=== PATIENT | male | born 1960 | race Caucasian/White ===

== ENCOUNTER 2017-12-26 16:59 | Emergency (ER) | payer MEDICAID ==
[~2017-12-26] VITALS: Ht 188 cm; Wt 107.5 kg
[2017-12-26] MEDS ORDERED: OLAN5TAB5 PO (18:00)
[2017-12-26] MEDS ORDERED: BENZ2TAB7 PO (18:00)
[2017-12-26] MEDS ORDERED: DIVA-76 PO (18:00)
[2017-12-26] MEDS ORDERED: TOPI50TA24 PO (18:00)
[2017-12-26 18:04] LABS: CLARITY,URINE CLEAR (Clear); COLOR,URINE YELLOW (Yellow); GLUCOSE, URINE NEGATIVE (Neg); KETONES,URINE NEGATIVE (Neg); LEUKOCYTE ESTERASE ,URINE NEGATIVE (Neg); NITRITES, URINE NEGATIVE (Neg); OCCULT BLOOD,URINE NEGATIVE (Neg); PH,URINE 5.5 (4.8-8.0); PROTEIN,URINE NEGATIVE (Neg); UROBILINOGEN,URINE 0.2 E.U/dL (0.2-1.0)
[2017-12-26 18:06] LABS: UA COLLECTION TYPE CLN CATCH MIDSTREAM
[2017-12-26 18:15] LABS: URINE AMPHETAMINE SCREEN NEGATIVE (Neg); URINE BARBITUATE SCREEN NEGATIVE (Neg); URINE BENZODIAZEPINES SCREEN NEGATIVE (Neg); URINE CANNABINOID SCREEN NEGATIVE (Neg); URINE COCAINE SCREEN NEGATIVE (Neg); URINE METHADONE SCREEN NEGATIVE (Neg); URINE OPIATE SCREEN NEGATIVE (Neg); URINE PHENCYCLIDINE SCREEN NEGATIVE (Neg)
[2017-12-26 18:40] LABS: BASOPHILS # (AUTO) 0.1 X10'3 (0-0.2); BASOPHILS % (AUTO) 0.9 % (0-1); EOSINOPHILS # (AUTO) 0.2 X10'3 (0-0.9); EOSINOPHILS % (AUTO) 1.6 % (0-6); HEMATOCRIT 45.4 % (42.0-52.0); HEMOGLOBIN 14.9 g/dl (14.0-17.9); LYMPHOCYTES # (AUTO) 2.9 X10'3 (1.1-4.8); LYMPHOCYTES % (AUTO) 23.8 % (21-51); MEAN CORPUSCULAR HEMOGLOBIN 29.1 PG (27.0-31.0); MEAN CORPUSCULAR HGB CONC 32.9 % (33.0-36.5); MEAN CORPUSCULAR VOLUME 88.5 FL (78-98); MEAN PLATELET VOLUME 8.1 FL (7.4-10.4); MONOCYTES # (AUTO) 1.2 X10'3 (0-0.9); MONOCYTES % (AUTO) 10.1 % (2-12); NEUTROPHILS # (AUTO) 7.8 X10'3 (1.8-7.7); NEUTROPHILS % (AUTO) 63.6 % (42-75); PLATELET COUNT 323 X10'3 (140-440); RED BLOOD COUNT 5.13 X10'6 (4.70-6.10); RED CELL DISTRIBUTION WIDTH 13.7 % (11.5-14.5); WHITE BLOOD COUNT 12.2 X10'3 (4.5-11.0)
[2017-12-26 18:53] LABS: ALANINE AMINOTRANSFERASE 59 U/L (12-78); ALBUMIN/GLOBULIN RATIO 0.9 (1.1-1.5); ALKALINE PHOSPHATASE 90 IU/L (46-116); ANION GAP 10 (8-16); ASPARTATE AMINO TRANSFERASE 50 U/L (10-37); BILIRUBIN,TOTAL 0.4 MG/DL (0.1-1.0); BLOOD UREA NITROGEN 17 MG/DL (7-18); BUN/CREATININE RATIO 20.5 (5.4-32.0); CHLORIDE 100 MMOL/L (99-107); CREATININE 0.83 MG/DL (0.60-1.10); GLUCOSE 114 MG/DL (70-104); POTASSIUM 4.2 MMOL/L (3.5-5.1); SODIUM 135 MMOL/L (135-145); TOTAL CARBON DIOXIDE 24.8 MMOL/L (24-32); TOTAL PROTEIN 8.7 G/DL (6.4-8.2); eGFR > 90 ML/MIN
[2017-12-26 19:03] LABS: ETHANOL < 0.010 GM/DL (0.0-0.010)
[2017-12-26] MEDS ORDERED: LORazepam 1 MG tablet PO ONE (23:50)
[2017-12-27] MEDS ORDERED: haloperidol lactate 5mg/ml inj IM PRN (00:40)
[2017-12-27] MEDS ORDERED: LORazepam 2 mg/ml vial IM PRN (00:40)
[2017-12-27] MEDS ORDERED: haloperidol 1mg tablet PO PRN (00:40)
[2017-12-27] MEDS: divalproex sodium 500mg tablet.DR PO SCH ×2 (07:17→20:59)
[2017-12-27] MEDS: benztropine 1mg tablet PO SCH ×2 (07:18→20:00)
[2017-12-27] MEDS ORDERED: olanzapine 10mg tablet PO ONE (07:20)
[2017-12-27] MEDS: topiramate 25mg tablet PO SCH (08:00)
[2017-12-27] MEDS: LORazepam 0.5 MG tablet PO PRN (15:19)
[2017-12-27] MEDS ORDERED: olanzapine 10mg tablet PO SCH (21:00)
[2017-12-28 05:13] VITALS: BP 115/65
[2017-12-28] MEDS: topiramate 25mg tablet PO SCH (07:13)
[2017-12-28] MEDS: benztropine 1mg tablet PO SCH (07:13)
[2017-12-28] MEDS: LORazepam 0.5 MG tablet PO PRN (08:35)
== END 2017-12-28 13:45 ==
LOC: ER 17:00
DX: F20.9 Schizophrenia, unspecified (principal); Z88.8 Allergy status to other drugs, medicaments and biological substances
CPT/HCPCS: 36415; 80053; 80305; 80320; 81003; 84443; 85025; 99285; J3490